=== PATIENT | female | born 1980 | race Two or more races ===

== ENCOUNTER 2024-03-28 07:35 | Emergency (ER) | payer MEDICAID ==
[~2024-03-28] VITALS: Ht 170.2 cm; Wt 55.0 kg
[2024-03-28 07:37] VITALS: O2SAT 100
[2024-03-28] MEDS: SODIUM CHLORIDE 0.9% 1,000 ML IV ONE (08:14)
[2024-03-28] MEDS: MORPHINE SULFATE 4 MG/ML INJ (FOR IV/IM USE) IV STA (08:14)
[2024-03-28] MEDS: MAGNESIUM/ALUMINUM HYDROXIDE/SIMETHICONE 30ML UDC PO STA (08:14)
[2024-03-28] MEDS: ONDANSETRON HCL 4MG/2ML INJ IV STA (08:14)
[2024-03-28 08:19] LABS: BASOPHILS % 0.4 % (0.0-2.0); CHLORIDE 107 mEq/L (98-107); EOSINOPHILS % 0.9 % (0.0-5.0); HEMATOCRIT. 41.3 % (36.0-48.0); HEMOGLOBIN. 13.9 g/dL (12.0-16.0); LYMPHOCYTES % 22.7 % (20.0-50.0); MEAN CORPUSCULAR HEMOGLOBIN 30.4 pg (28.0-32.0); MEAN CORPUSCULAR HGB CONC 33.6 g/dL (31.0-37.0); MEAN CORPUSCULAR VOLUME 90.4 fL (81.0-99.0); MEAN PLATELET VOLUME 8.9 fl (7.4-10.4); MONOCYTES % 5.1 % (2.0-8.0); NEUTROPHILS % 70.9 % (40.0-76.0); PLATELET 234 x1000/uL (130-400); POTASSIUM 3.4 mEq/L (3.5-5.1); RED BLOOD CELL COUNT 4.57 mill/uL (4.2-5.4); RED CELL DISTRIBUTION WIDTH 12.7 % (11.6-14.6); SODIUM 141 mEq/L (136-145); WHITE BLOOD COUNT 8.3 x1000/uL (4.5-11.0)
[2024-03-28 08:20] LABS: CARBON DIOXIDE 24 mEq/L (21-32)
[2024-03-28 08:25] LABS: CREATININE 0.7 mg/dL (0.6-1.0); GLUCOSE 104 mg/dL (70-105); UREA NITROGEN BLOOD 10 mg/dL (9-23)
[2024-03-28 08:26] LABS: ALANINE AMINOTRANSFERASE 12 IU/L (10-49); ALBUMIN 4.2 g/dL (3.2-4.8); ASPARTATE AMINOTRANSFERASE 18 IU/L (<34)
[2024-03-28 08:27] LABS: BILIRUBIN DIRECT 0.3 mg/dL (<=3.0); BILIRUBIN TOTAL 1.3 mg/dL (0.1-1.0); PROTEIN TOTAL 7.2 g/dL (6.0-8.3)
[2024-03-28 09:32] LABS: HCG SCREEN NEGATIVE
[2024-03-28 13:00] VITALS: BP 99/44; PULSE 73; RESP 16; O2SAT 100
[2024-03-28 13:26] LABS: CLARITY URINE CLOUDY (CLEAR); COLOR URINE YELLOW (YELLOW); GLUCOSE URINE NEGATIVE (NEGATIVE); KETONES URINE 4+ (NEGATIVE); LEUKOCYTE ESTERASE URINE NEGATIVE (NEGATIVE); NITRITE URINE NEGATIVE (NEGATIVE); OCCULT BLOOD URINE NEGATIVE (NEGATIVE); PH URINE 6.5 (4.5-8.0); PROTEIN URINE TRACE (NEGATIVE); UROBILINOGEN URINE 0.2 E.U./dL (0.2-1.0)
[2024-03-28 13:50] LABS: BACTERIA URINE 4+; SQUAMOUS EPITHELIAL CELL URINE 2+ /lpf (RARE/1+); YEAST URINE NONE SEEN
== END 2024-03-28 13:14 | disposition home or self-care (01) ==
LOC: ER 07:41
DX: R10.84 Generalized abdominal pain (principal); R55 Syncope and collapse
CPT/HCPCS: 80076; 80048; 81003; 84703; 83605; 83690; 85025; 85610; 87040; 36415; 74176; 76700; 93005; 96361; 96374; 96375; 99285; J2405; J2270; J7030; Z7610; A4606

== ENCOUNTER 2024-08-24 03:26 | Emergency (ER) | payer MEDICAID ==
[~2024-08-24] VITALS: Ht 152.4 cm; Wt 49.0 kg
[2024-08-24 03:57] VITALS: TEMP 36.8; O2SAT 100
[2024-08-24] MEDS: FLUORESCEIN SODIUM 1MG/STRIP BOTHEYE STA (06:26)
[2024-08-24] MEDS: TETRACAINE 0.5% OPHTH DROPS 4ML BOTHEYE STA (06:26)
[2024-08-24] MEDS ORDERED: IBUP-2028 MT (08:16)
[2024-08-24] MEDS ORDERED: OCUFLX RIGHTEYE (08:16)
[2024-08-24] MEDS ORDERED: TOPUD PO (08:16)
[2024-08-24 08:39] VITALS: BP 99/53; PULSE 71; RESP 18; O2SAT 100
== END 2024-08-24 08:41 | disposition home or self-care (01) ==
LOC: ER 03:26
DX: S00.11XA Contusion of right eyelid and periocular area, initial encounter (principal); Z79.899 Other long term (current) drug therapy; W19.XXXA Unspecified fall, initial encounter; Y93.89 Activity, other specified; Y92.89 Other specified places as the place of occurrence of the external cause; Y99.8 Other external cause status
CPT/HCPCS: 70486; 99284